=== PATIENT | female | born 1995 | race Caucasian/White ===

== ENCOUNTER 2017-11-25 17:36 | Emergency (ER) | payer BC ==
[2017-11-25 18:41] VITALS: BP 122/69
--- NOTE | 2017-11-25 19:36 | UC ---
Skin Complaint HPI - HPI Summary HPI Summary: here for evaluation of labial sores present x 2 days, began after shaving the perineum. [place] at the beach, swam, aware of sand irritation. Has had 2 posterior fourchette sores which appeared as papules. New partner 6 days ago, used condom, unaware of any STI history. Last partner was 3 months prior, stable relationship x 3 years. Relying on condoms for contraception. Discussed STI's and offered screening for chlamydia-->declined. Screened last year - History of Current Complaint Chief Complaint: UCGeneralIllness Time Seen by Provider: 11/25/17 19:07 Stated Complaint: PERSONAL Hx Obtained From: Patient Hx Last Menstrual Period: 11/12/17 Onset/Duration: Gradual Onset, Lasting Days - 3 Skin Exposure Onset/Duration: Days Ago - 3 Timing: Constant Onset Severity: Mild Current Severity: Mild Pain Intensity: 4 Location: Discrete Aggravating Factor(s): Clothing, Touch Alleviating Factor(s): Nothing Associated Signs & Symptoms: Positive: Negative - Allergy/Home Medications Allergies/Adverse Reactions: Allergies Allergy/AdvReac Type Severity Reaction Status Date / Time No Known Allergies Allergy Verified 11/25/17 18:32 Home Medications: Home Medications Ascorbic Acid TAB* [Vitamin C TAB*] 500 mg PO DAILY PRN 11/25/17 [History Confirmed 11/25/17] Review of Systems Constitutional: Negative Skin: Negative Eyes: Negative ENT: Sore Throat - essentially resolved. Took 1 dose of antibiotic and stopped because it got better. Respiratory: Negative Cardiovascular: Negative Gastrointestinal: Negative Genitourinary: Negative - no dysuria, now day 12 of cycle, having light spotting and cramping. Usually has same sensation without spotting at the time of ovulation. No vaginal discharge. Motor: Negative Neurovascular: Negative Musculoskeletal: Negative Neurological: Negative Psychological: Negative Is Patient Immunocompromised?: No All Other Systems Reviewed And Are Negative: Yes PMH/Surg Hx/FS Hx/Imm Hx Previously Healthy: Yes - Surgical History Surgical History: None - Family History Known Family History: Positive: Hypertension - father - Social History Occupation: Employed Full-time Lives: With Family Alcohol Use: Occasionally Substance Use Type: None Smoking Status (MU): Never Smoked Tobacco Physical Exam Triage Information Reviewed: Yes Appearance: Well-Appearing, No Pain Distress Vital Signs: Initial Vital Signs Temp 98.9 F 11/25/17 18:33 Pulse 78 11/25/17 18:33 Resp 14 11/25/17 18:33 BP 122/69 11/25/17 18:33 Pulse Ox 100 11/25/17 18:33 ENT: Positive: Pharynx normal, Tonsillar swelling - mild erythema, no exudate Neck: Positive: Supple, Nontender, Enlarged Nodes @ - tonsillar nodes, minimally tender, no other cervical or occipital nodes. Respiratory: Positive: Lungs clear, Normal breath sounds Cardiovascular: Positive: RRR, No Murmur Abdomen Description: Positive: Nontender, No Organomegaly, Soft, Other: - shaved perineum with erythema outer labia. Posterior fourchette--right side with 3 mm raised papule without drainage, left side with 3mm raised papule without drainage. (no drainage to sample.) Musculoskeletal Exam: Normal Neurological Exam: Normal Psychological Exam: Normal Skin Exam: Normal Course/Dx - Course Course Of Treatment: 1% hydrocortisone to perineal irritation. - Differential Diagnoses - Skin Complaint Differential Diagnoses: Other - herpes simplex, sebaceous cyst, focal irritation. - Diagnoses Provider Diagnoses: irritant dermatitis from shaving, less likely genital herpes Discharge - Sign-Out/Discharge Documenting (check all that apply): Patient Departure - Discharge Plan Condition: Stable Disposition: HOME Patient Education Materials: Contact Dermatitis (ED) Referrals: Tequila Hoffman MD [Primary Care Provider] - Additional Instructions: The appearance of the vulvar area is consistent with irritation from shaving, and small papules related to this. Use a light application of 1% hydrocortisone cream to the area. This is less likely herpes infection, but clinically not typical and there is not sufficient drainage to send for sampling. - Billing Disposition and Condition Condition: STABLE Disposition: Home
== END 2017-11-25 19:54 | disposition home or self-care (01) ==
LOC: UCCORT 17:36
DX: L24.89 Irritant contact dermatitis due to other agents (principal); Y93.E8 Activity, other personal hygiene; Y92.002 Bathroom of unspecified non-institutional (private) residence as the place of occurrence of the external cause
CPT/HCPCS: 99212; G0463

== ENCOUNTER 2017-11-26 14:03 | Emergency (ER) | payer BC ==
[2017-11-26 14:29] VITALS: BP 128/69
--- NOTE | 2017-11-26 15:09 | UC ---
Complaint Female HPI - HPI Summary HPI Summary: Per new order clerk: "1. Has sore throat and swollen glands for past week. Hurts to swallow. Feels more swollen today than last night. 2. Has two spots on vagina that Dr. Wyatt believed to have been from razor burn. Has new sexual partner. Took plan B on Wednesday. Started period again last night, LMP 11/12/17. Painful inside vagina when inserting tampon today. Denies having any testing done yesterday. " -note from yesterday's OV is reviewed. -no HSV cx done b/c no d/c -no strep cx done -she admits that she took an amox tablet through the week -ST is not terrible. -bleeding has decreased today -was told to use topical HC cream yesterday but it caused pain and she stopped it and [facility] -has shaved area. She was at beach over wknd and noted irritation from sand/ water -used condoms for protection -no known STDs -last pap slightly > 1 yr ago at GYNB's office at [facility] - Dr Gresham has not f/u there since as he is no longer there -reports that ST was sveree 5 days ago w/ swollen glands and very raw. improved after mom gave her 1 dose of amox and then worsened again last night. - History Of Current Complaint Chief Complaint: UCGU Stated Complaint: RECHECK URINARY/SORE THROAT Time Seen by Provider: 11/26/17 15:05 Hx Last Menstrual Period: 11/12/17 Pain Intensity: 4 - Allergies/Home Medications Allergies/Adverse Reactions: Allergies Allergy/AdvReac Type Severity Reaction Status Date / Time No Known Allergies Allergy Verified 11/26/17 14:15 Home Medications: Home Medications Ibuprofen TAB* [Advil TAB*] 400 mg PO Q6H PRN 11/26/17 [History Confirmed ] PMH/Surg Hx/FS Hx/Imm Hx Previously Healthy: Yes - Surgical History Surgical History: None - Family History Known Family History: Positive: Hypertension - father - Social History Alcohol Use: Occasionally Substance Use Type: None Smoking Status (MU): Never Smoked Tobacco Review of Systems Constitutional: Negative Skin: Rash Eyes: Negative ENT: Sore Throat Respiratory: Negative Cardiovascular: Negative Gastrointestinal: Negative Genitourinary: Dysuria, Vaginal/Penile Burning, Ulceration/Lesion Motor: Negative Neurovascular: Negative Musculoskeletal: Negative Neurological: Negative Psychological: Negative Is Patient Immunocompromised?: No All Other Systems Reviewed And Are Negative: Yes Physical Exam Triage Information Reviewed: Yes Appearance: Well-Appearing Vital Signs: Initial Vital Signs Temp 99.9 F 11/26/17 14:11 Pulse 88 11/26/17 14:11 Resp 15 11/26/17 14:11 BP 128/69 11/26/17 14:11 Pulse Ox 100 11/26/17 14:11 Vital Signs Reviewed: Yes Eyes: Positive: Conjunctiva Clear ENT: Positive: Hearing grossly normal, Pharynx normal, Pharyngeal erythema - minimal, no exudate. patent OP, TMs normal, Uvula midline. Negative: Tonsillar swelling, Tonsillar exudate, Hoarse voice, Sinus tenderness Neck exam: Normal Neck: Positive: Supple, Nontender, No Lymphadenopathy Respiratory: Positive: Lungs clear, Normal breath sounds Cardiovascular Exam: Normal Cardiovascular: Positive: RRR, No Murmur, Pulses Normal Abdomen Description: Positive: Nontender, Soft Pelvic Exam: Positive: No Masses, Lesions - b/l posterior fornices w/ ~ 2-3 mm round lesions that appear open. there is no visible d/c. tender. no surrounding erythema. hair is shaved. vaginal vault and labia show no lesions.. Negative: Blood - has tampon inserted high Musculoskeletal Exam: Normal Neurological Exam: Normal Psychological Exam: Normal Skin Exam: Normal Complaint Female Dx - Course Course Of Treatment: HSV swab today - uncertain of yield d/t small size and no active dc. -rapid strep positive. treat w/ amox. -UA - nml. -dysuria likely d /t pain of small sores. -I highly recommend that she follows up with [facility] and can actually call her old [facility]NA[facility]'s office to see another provider there. - Differential Dx/Diagnosis Differential Diagnosis/HQI/PQRI: Sexually Transmitted Disease, Urinary Tract Infection, Other - Strep Provider Diagnoses: vaginal lesions, Strep pharyngitis Discharge - Sign-Out/Discharge Documenting (check all that apply): Patient Departure - Discharge Plan Condition: Stable Disposition: HOME Prescriptions: Amoxicillin PO (*) [Amoxicillin 875 MG (*)] 875 mg PO BID #20 tab Patient Education Materials: Genital Herpes Simplex (ED), Strep Throat (DC) Referrals: Dalton,Tequila, MD [Primary Care Provider] - Additional Instructions: -You should make sure to follow up at your [facility]'s office. You can call by mid week next week for genital culture results if you have not heard back from us. -Make sure to take a probiotic daily while on antibiotics to help prevent a potential complication of antibiotic use called c diff. Some well known brands that can be found OTC are florastor, align and colon health. Make sure to complete the entire prescription unless advised otherwise by your health care provider. -We are giving you an informational packet on herpes just in case the culture is positive, as we discussed. This is not a definitive diagnosis at this time. - Billing Disposition and Condition Condition: STABLE Disposition: Home
== END 2017-11-26 16:00 | disposition home or self-care (01) ==
LOC: UCCORT 14:03
DX: N89.8 Other specified noninflammatory disorders of vagina (principal); J02.0 Streptococcal pharyngitis
CPT/HCPCS: 81003; 84702; 87529; 87651; 99212; G0463

== ENCOUNTER 2017-11-28 13:31 | Emergency (ER) | payer BC ==
[2017-11-28 14:51] VITALS: BP 119/72
--- NOTE | 2017-11-28 15:22 | UC ---
Complaint Female HPI - HPI Summary HPI Summary: PT SEEN ON 11/25/17 AND TX FOR IRRITATION FROM SHAVING WITH HYDROCORTISONE. SHE STOPPED THAT BECAUSE IT BURNED AND STARTED NEOSPORIN. SHE CAME BACK ON 11/27/17 AND HAD AN EXTERNAL PELVIC EXAM AND HSV CULTURE OBTAINED WHICH IS STILL PENDING. SHE ALSO HAD A NEG HCG ON THE PRIOR VISIT PLUS A + STREP THROAT THAT IS BETTER ON AMOXICILLIN. SHE RETURNS TODAY C/O WORSE BURNING WITH URINATION AND MORE LOCAL IRRITATION AT THE [facility]. SHE DENIES ANY HX OF HERPES/STD'S. SHE DOES HAVE A NEW PARTNER. SHE ALSO NOTES SOME SPOTTING. - History Of Current Complaint Chief Complaint: UCGU Stated Complaint: UTI SYMPTOMS Time Seen by Provider: 11/28/17 14:54 Hx Obtained From: Patient Hx Last Menstrual Period: 11/17/17 Onset/Duration: Gradual Onset Timing: Constant Pain Intensity: 6 Alleviating Factor(s): Nothing Associated Signs And Symptoms: Negative: Fever, Back Pain - Allergies/Home Medications Allergies/Adverse Reactions: Allergies Allergy/AdvReac Type Severity Reaction Status Date / Time No Known Allergies Allergy Verified 11/28/17 14:49 PMH/Surg Hx/FS Hx/Imm Hx Previously Healthy: Yes - Surgical History Surgical History: None - Family History Known Family History: Positive: Hypertension - father - Social History Occupation: Employed Full-time Alcohol Use: Occasionally Substance Use Type: None Smoking Status (MU): Never Smoked Tobacco - Immunization History Vaccination Up to Date: Yes Review of Systems Constitutional: Negative Skin: Negative Eyes: Negative ENT: Negative Respiratory: Negative Cardiovascular: Negative Gastrointestinal: Negative Genitourinary: Dysuria, Ulceration/Lesion Motor: Negative Neurovascular: Negative Musculoskeletal: Negative Neurological: Negative Psychological: Negative Is Patient Immunocompromised?: No All Other Systems Reviewed And Are Negative: Yes Physical Exam Triage Information Reviewed: Yes Appearance: Well-Appearing Vital Signs: Initial Vital Signs Temp 98.9 F 11/28/17 14:45 Pulse 85 11/28/17 14:45 Resp 15 11/28/17 14:45 BP 119/72 11/28/17 14:45 Pulse Ox 100 11/28/17 14:45 Vital Signs Reviewed: Yes Eyes: Positive: Conjunctiva Clear ENT: Positive: Pharynx normal, TMs normal. Negative: Nasal congestion, Nasal drainage Neck: Positive: Supple, Nontender, Enlarged Nodes @ - PERITONSILAR Respiratory: Positive: Lungs clear, Normal breath sounds Cardiovascular: Positive: RRR, No Murmur Abdomen Description: Positive: Nontender, No Organomegaly, Soft. Negative: CVA Tenderness (R), CVA Tenderness (L), Distended, Guarding Bowel Sounds: Positive: Present Pelvic Exam: Positive: Speculum Exam Normal, Bimanual Exam Normal, Other - small ulceration to each side of labia majora bases. no eryhtema, swelling or discharge. Musculoskeletal: Positive: ROM Intact Neurological: Positive: Alert Psychological: Positive: Age Appropriate Behavior Skin Exam: Normal Diagnostics - Laboratory Diagnostic Studies Completed/Ordered: TODAY, 11/28/17 THE U/A=TRACE LYSED BLOOD ONLY. CULTURE=PENDING. HCG ON 11/26/17=NEGATIVE. HSV ON 11/27/17=PENDING. TODAY, 11/28/17 PELVIC GONNORRHEA, CHLAMYDIA, TRICH/SMOOTH/WESTON=PENDING Complaint Female Dx - Course Course Of Treatment: ulcerations do not look herpetic but HSV is pending. Urine culture and additional std pending as well. pt to finish amoxicillin as directed for the strep throat. since no relief from neosporin and hydrocortisone made pain at ulcers worse, will d/c both and tx the 2 spots with silvadene. pt has hose maker f/u this coming . - Differential Dx/Diagnosis Provider Diagnoses: Dysuria. Superfifical ulcerations vaginal area. Discharge - Sign-Out/Discharge Documenting (check all that apply): Patient Departure - Discharge Plan Condition: Stable Disposition: HOME Prescriptions: Silver Sulfadiazine 1%* [SILVadine 1%*] 1 applic TOPICAL BID 7 Days #1 tube Patient Education Materials: Dysuria (ED), Sitz Bath (DC) Referrals: Tequila Hoffman MD [Primary Care Provider] - If Needed Additional Instructions: COMPLETE THE AMOXICILLIN DIRECTED FOR THE STREP THROAT. STOP THE NEOSPORIN SINCE NOT HELPING. STOP ALL SHAVING IN VAGINAL AREAS. DISPOSE OF LAST SHAVER. FOLLOW UP WITH INPATIENT NURSING AIDE THIS COMING WEDNESDAY SCHEDULED. Per institutional requirements, I have reviewed the chart, however, I was not consulted specifically or made aware of this patient by the above midlevel provider. I did not personally evaluate, interact with , or disposition this patient. - Billing Disposition and Condition Condition: STABLE Disposition: Home
--- NOTE | 2017-11-30 07:25 | UC ---
- Progress Note Progress Note: PLEASE CALL THE PT. + bv WILL CALL IN fLAGYL X 7 DAYS Discharge - Sign-Out/Discharge Documenting (check all that apply): Patient Departure - Discharge Plan Condition: Stable Disposition: HOME Prescriptions: Silver Sulfadiazine 1%* [SILVadine 1%*] 1 applic TOPICAL BID 7 Days #1 tube Patient Education Materials: Dysuria (ED), Sitz Bath (DC) Referrals: Tequila Hoffman MD [Primary Care Provider] - If Needed Additional Instructions: COMPLETE THE AMOXICILLIN DIRECTED FOR THE STREP THROAT. STOP THE NEOSPORIN SINCE NOT HELPING. STOP ALL SHAVING IN VAGINAL AREAS. DISPOSE OF LAST SHAVER. FOLLOW UP WITH HEAVY FORGER THIS COMING WEDNESDAY SCHEDULED. Per institutional requirements, I have reviewed the chart, however, I was not consulted specifically or made aware of this patient by the above midlevel provider. I did not personally evaluate, interact with , or disposition this patient. - Billing Disposition and Condition Condition: STABLE Disposition: Home
== END 2017-11-28 16:16 | disposition home or self-care (01) ==
LOC: UCCORT 13:31
DX: R30.0 Dysuria (principal); N76.5 Ulceration of vagina; N76.0 Acute vaginitis; B96.89 Other specified bacterial agents as the cause of diseases classified elsewhere
CPT/HCPCS: 81003; 87086; 87480; 87491; 87510; 87591; 87661; 99211; G0463